=== PATIENT | female | born 1955 | race Caucasian/White ===

== ENCOUNTER 2017-07-19 08:29 | Emergency (ER) | payer OTHER ==
[~2017-07-19] VITALS: Wt 98.5 kg
[2017-07-19] MEDS ORDERED: KETOROLAC 30 MG INJ IM STA (09:06)
[2017-07-19] MEDS ORDERED: DEXAMETHASONE 10 MG/ML 1 ML INJ IM ONE (09:30)
[2017-07-19] MEDS ORDERED: NAPR-260 PO (09:40)
[2017-07-19] MEDS ORDERED: RANI150T9 PO (09:40)
[2017-07-19] MEDS ORDERED: PRED20TA PO (09:40)
[2017-07-19 09:53] VITALS: BP 128/68; PULSE 66; RESP 18
--- NOTE | 2017-07-19 10:32 | ERD ---
ER Documentation Chief Complaint Date/Time DATE: 07/19/17 TIME: 10:29 Chief Complaint LEFT HIP/LEG PAIN RADIATING TO LEFT FOOT, NO INJURY HPI Patient is a 61-year-old female with past medical history of sciatica presenting to the emergency department with complaints of left-sided low back pain which radiates down her buttocks and posterior left leg worsening over the past 2 days. She states it was difficult for her to sleep last night secondary to pain. Pain is worse with movement. She describes it as aching. She denies loss of bowel or bladder function, recent trauma, fevers, chills, or other symptoms. ROS All systems reviewed and are negative except as per history of present illness. Medications Home Meds Active Scripts Prednisone* (Prednisone*) 20 Mg Tab, 40 MG PO DAILY for 4 Days, #8 TAB Prov:JONATHAN FELTON PA-C 07/19/17 Ranitidine Hcl* (Zantac*) 150 Mg Tablet, 150 MG PO BID Y for EPIGASTRIC PAIN, # 30 TAB Prov:JONATHAN FELTON PA-C 07/19/17 Naproxen* (Naprosyn*) 500 Mg Tablet, 500 MG PO BID Y for PAIN AND/OR INFLAMMATION, #30 TAB Prov:JONATHAN FELTON PA-C 07/19/17 Allergies Allergies: Coded Allergies: No Known Allergy (Unverified , 07/19/17) PMhx/Soc Hx Miscellaneous Medical Probl: Yes (sciatica) Hx Alcohol Use: No Hx Substance Use: No Hx Tobacco Use: No Physical Exam Vitals Vital Signs Date Time Temp Pulse Resp B/P Pulse Ox O2 Delivery O2 Flow Rate FiO2 07/19/17 09:53 66 18 128/68 99 Room Air 07/19/17 08:31 98.6 105 17 166/84 98 Physical Exam Const: Nontoxic, well-appearing female in no acute distress. Head: Atraumatic Eyes: Normal Conjunctiva ENT: Normal External Ears, Nose and Mouth. Skin: No petechiae or rashes Back: No midline or flank tenderness. There is tenderness to palpation of the paraspinal muscles of the lumbar spine on the left, tenderness to palpation of the left buttock region. Straight leg raise on the left, negative on the right. Ext: No cyanosis, or edema Neur: Awake and alert Psych: Normal Mood and Affect Results 24 hrs Current Medications Medications (Trade) Dose Ordered Sig/Shavon Route PRN Reason Start Time Stop Time Status Last Admin Dose Admin Ketorolac Tromethamine (Toradol) 30 mg ONCE STAT IM 07/19/17 09:06 07/19/17 09:07 DC 07/19/17 09:28 Dexamethasone (Decadron) 10 mg ONCE ONCE IM 07/19/17 09:30 07/19/17 09:31 DC 07/19/17 09:30 Procedures/MDM 61-year-old female presents to the emergency department with complaints of left- sided low back pain with radiation down her left leg. History and physical examination is consistent with uncomplicated sciatica. Low suspicion for epidural abscess, cauda equina, or other emergent conditions. The patient was treated in the department with IM Toradol and IM Decadron she was feeling significantly improved prior to discharge. She was stable for outpatient management with a prescription for prednisone, naproxen, and ranitidine for prophylaxis of gastritis. Strict ER return precautions were discussed. Follow- up with the primary care physician was advised within 1-2 days. Departure Diagnosis: Primary Impression: Sciatica Laterality: left Qualified Code: M54.32 - Sciatica of left side Condition: Fair Patient Instructions: Back Pain W/ Sciatica [facility] Usted se webber hecho un examen mdico de control que le indica que no est en wes condicin que requiera tratamiento urgente en el Departamento de Emergencia. Un estudio ms profundo y el tratamiento de archibald condicin pueden esperar sin ningn riesgo hasta que usted sea atendida/o en el consultorio de archibald mdico o wes cl josefina. Es responsabilidad suya arreglar wes misael para el seguimiento del shelly. MANEJO DE CONDICIONES NO URGENTES EN EL FUTURO 1) Si usted tiene un mdico de atencin primaria: Usted debera llamar a archibald mdico de atencin primaria antes de venir al departamento de emergencia. Despus de las horas de consultorio, archibald doctor o archibald asociado/a est disponible por telfono. El mdico o enfermero de dima en el servicio telefnico puede asesorarle por radha medio para atender el problema, o shelly contrario se puede programar wes misael. 2) Si usted no tiene un mdico de atencin primaria: Llame al mdico o clnica de referencia que aparece abajo bita las horas de consultorio para hacer wes misael para que le vean. CLINICAS: [facility] [phone] [facility] [phone] [facility] [phone] [facility] [phone] [facility] [phone] [address] [facility]. [phone] [address] Additional Instructions: No mas mejor en 2-3 guerrero, regresar. Mas peor en 24 horas, regresear rapidamente. Ir a doctor primario in 5-7 guerrero. Usar instrucciones cuando bethel medicamento. JONATHAN FELTON PA-C Jul 19, 2017 10:32
== END 2017-07-19 09:55 | disposition home or self-care (01) ==
LOC: FTE 08:29
DX: M54.42 Lumbago with sciatica, left side (principal)
CPT/HCPCS: 96372; J1100; J1885; Z7502

== ENCOUNTER 2018-12-10 07:51 | Day surgery (SDC) | payer OTHER ==
[~2018-12-10] VITALS: Ht 157.5 cm; Wt 91.1 kg
[~2018-12-10 07:51] MED LIST: NAPR-985 PO; PRED20TA PO; RANI150T35 PO
[2018-12-10 09:27] VITALS: Ht 157.5 cm; Wt 91.1 kg
[2018-12-10] MEDS ORDERED: OMEPRAZOLE (09:41)
[2018-12-10] MEDS ORDERED: VENTOLIN (09:41)
[2018-12-10] MEDS ORDERED: SINGULAIR (09:41)
[2018-12-10 10:00] VITALS: BP 185/81; PULSE 71; RESP 20
--- NOTE | 2018-12-10 10:10 | PREAC ---
Date/Time of Note Date/Time of Note DATE: 12/10/18 TIME: 10:08 Anesthesia Eval and Record Evaluation Time Pre-Procedure Interview DATE: 12/10/18 TIME: 10:08 Age 63 Sex female NPO: 8 hrs Preoperative diagnosis Abdominal pain, Screening Planned procedure EGD& Colonoscopy Past Medical History Past Medical History: Includes Pulm: Asthma GI: Obesity Surgery & Anesthesia Issues No known issue Meds Anticoagulation: No Beta Jesenia within 24 hr: No Reason Beta Jesenia not given: Pt. not on B-Jesenia Active Scripts Naproxen* (Naprosyn*) 500 Mg Tablet, 500 MG PO BID PRN for PAIN AND/OR INFLAMMATION, #30 TAB Prov:JONATHAN FELTON PA-C 07/19/17 Reported Medications [Omeprazole] No Conflict Check 12/10/18 [Singulair] No Conflict Check 12/10/18 [Ventolin] No Conflict Check 12/10/18 Discontinued Scripts Prednisone* (Prednisone*) 20 Mg Tab, 40 MG PO DAILY for 4 Days, #8 TAB Prov:JONATHAN FELTON PA-C 07/19/17 Ranitidine Hcl* (Zantac*) 150 Mg Tablet, 150 MG PO BID PRN for EPIGASTRIC PAIN, #30 TAB Prov:JONATHAN FELTON PA-C 07/19/17 Meds reviewed: Yes Allergies Coded Allergies: No Known Allergy (Unverified , 07/19/17) Allergies Reviewed: Yes Labs/Studies Labs Reviewed: Reviewed by anesthesiologist test: N/A Studies: ECG (n/a), CXR (n/a) Pre-procedure Exam Airway: Adequate mouth opening, Adequate thyromental dist Mallampati: Mallampati II Teeth: Normal Lung: Normal Heart: Normal ASA Physical Status ASA physical status: 2 Emergency: None Planned Anesthetic General/MAC: MAC Planned Pain Management Parenteral pain med Pre-operative Attestations Prior to commencing anesthesia and surgery, the patient was re-evaluated, there was verification of: *The patient's identity *The results of appropriate recent lab work and preoperative vital signs *The above evaluation not changing prior to induction *Anesthetic plan, risk benefits, alternative and complications discussed with patient/family; questions answered; patient/family understands, accepts and wishes to proceed. KRYSTAL SILVA MD Dec 10, 2018 10:10
[2018-12-10] MEDS ORDERED: PROPOFOL 40 ML ONE (10:36)
--- NOTE | 2018-12-10 10:40 | PAC ---
Date/Time of Note Date/Time of Note DATE: 12/10/18 TIME: 10:40 Post-Anesthesia Notes Post-Anesthesia Note Last documented vital signs Vital Signs Date Temp Pulse Resp B/P (MAP) Pulse Ox O2 O2 Flow FiO2 Time Delivery Rate 12/10/18 98.4 71 20 185/81 99 Room Air 10:40 (115) Activity: WNL Respiratory function: WNL Cardiovascular function: WNL Mental status: Baseline Pain reasonably controlled: Yes Hydration appropriate: Yes Nausea/Vomiting absent: Yes KRYSTAL SILVA MD Dec 10, 2018 10:40
[2018-12-10 11:01] VITALS: BP 128/67; PULSE 63; RESP 18
== END 2018-12-10 11:23 | disposition home or self-care (01) ==
LOC: GIL 07:51
PROVIDERS: ATTEND Internal Medicine Gastroenterology
DX: Z12.11 Encounter for screening for malignant neoplasm of colon (principal); K64.8 Other hemorrhoids; K57.30 Diverticulosis of large intestine without perforation or abscess without bleeding; K44.9 Diaphragmatic hernia without obstruction or gangrene; K21.9 Gastro-esophageal reflux disease without esophagitis
CPT/HCPCS: 43239; 45378; 88305; 88312; Z7610